=== PATIENT | female | born 1975 | race Two or more races ===

== ENCOUNTER 2018-01-18 07:57 | Day surgery (SDC) | payer OTHER ==
[~2018-01-18] VITALS: Ht 165.1 cm; Wt 117.9 kg
[2018-01-18] VITALS (8 sets, daily range): BP systolic 134–159; BP diastolic 78–94
[~2018-01-18 07:57] MED LIST: BENAZEPRIL HCL10 MG ORAL; METFORMIN HCL500 M1 ORAL
[2018-01-18] MEDS ORDERED: Lidocaine 1% MPF 10mg/ml 5ml ONE (09:00)
[2018-01-18] MEDS ORDERED: Propofol 200mg/20ml IV ONE (09:00)
[2018-01-18] MEDS ORDERED: LR 1000ml ONE (09:00)
[2018-01-18] MEDS ORDERED: LR 1000ml 1,000 ML IVLG SCH (09:19)
--- NOTE | 2018-01-18 09:20 | Short Stay Surgery H&P ---
History of Present Illness History of Present Illness Chief Complaint Dysphagia/abdominal pains/GERDs HPI Delbert Hernandez is a 42 year old female who was admitted on for GERD Patient History Allergies: Coded Allergies: No Known Allergies (Unverified , 01/17/18) PAST MEDICAL HISTORY: (1) Hypertension (2) Hyperlipidemia (3) Diabetes (4) H/O elbow surgery Medication History Scheduled Benazepril Hcl* (Benazepril Hcl*), 10 MG ORAL DAILY, (Reported) Metformin Hcl* (Metformin Hcl*), 500 MG ORAL TWICE A DAY, (Reported) Review of Systems Cardiovascular: Reports: no symptoms Respiratory: Reports: no symptoms Skeletal: Reports: trauma Gastrointestinal: Reports: gastro esophageal reflux disease Genitourinary: Reports: no symptoms Neurologic: Reports: no symptoms Endocrine: Reports: diabetes - type 2 Hematologic: Reports: no symptoms Physical Exam Vital Signs Last Vital Signs Date Time Temp Pulse Resp B/P (MAP) Pulse Ox O2 Delivery O2 Flow Rate FiO2 01/18/18 08:43 Room Air 01/18/18 08:37 97.7 106 18 134/94 (107) 95 97.7 Labs Laboratory Tests Test 01/18/18 08:50 Human Chorionic Gonadotropin, Qual Pending Skin: normal HENT: normal Heart: normal Lungs: normal Abdomen: abnormal Extremities: normal Genitourinary: normal Plan Plan of Care Upper GI endoscopy and biopsy Preop Interventions None. Summary of Findings See the report Attestation Are the patient's medical conditions optimized for surgery? Attestation Response: yes Chante Lin MD Jan 18, 2018 09:20
--- NOTE | 2018-01-18 09:21 | Pre-Procedure Note/Attestation ---
Pre-Procedure Note/Attestation Complete Prior to Procedure Planned Procedure: left Procedure Narrative: Examination of the upper GI tract via endoscopy and biopsy Indications for Procedure Pre-Operative Diagnosis: R/O Peptic Ulcer/gastritis and esophagitis Attestation I attest that I discussed the nature of the procedure; its benefits; risks and complications; and alternatives (and the risks and benefits of such alternatives ), prior to the procedure, with the patient (or the patient's legal motor vehicle field representative). I attest that, if there was a reasonable possibility of needing a blood transfusion, the patient (or the patient's legal motor vehicle field representative) was given the [facility] standardized written summary, pursuant to the Sukh Disney Blood Safety Act ([place] Health and Safety Code # 1645, as amended). I attest that I re-evaluated the patient just prior to the surgery and that there has been no change in the patient's H&P, except as documented below: Chante Lin MD Jan 18, 2018 09:21
--- NOTE | 2018-01-18 09:23 | Anethesia Preoperative Eval ---
Anesthesia Pre-op PMH/ROS General Date of Evaluation: Jan 18, 2018 Time of Evaluation: 09:11 Anesthesiologist: adebayo ASA Score: ASA 3 Mallampati Score Class I : Soft palate, uvula, fauces, pillars visible Class II: Soft palate, uvula, fauces visible Class III: Soft palate, base of uvula visible Class IV: Only hard plate visible Mallampati Classification: Class II Surgeon: ama Diagnosis: gerd Surgical Procedure: egd Anesthesia History: none Social History: smoking - nonsmoker Family History: no anesthesia problems Allergies: Coded Allergies: No Known Allergies (Unverified , 01/17/18) Medications: see eMAR Past Medical History Cardiovascular: Reports: HTN Pulmonary: Reports: asthma Gastrointestinal/Genitourinary: Reports: GERD, other - kidney infection Endocrine: Reports: DM Musculoskeletal/Integumentary: Reports: OA Other: obesity Anesthesia Pre-op Phys. Exam Physician Exam Last Vital Signs Date Time Temp Pulse Resp B/P (MAP) Pulse Ox O2 Delivery O2 Flow Rate FiO2 01/18/18 08:43 Room Air 01/18/18 08:37 97.7 106 18 134/94 (107) 95 97.7 Constitutional: NAD Neurologic: CN 2-12 intact Cardiovascular: RRR Respiratory: CTA Gastrointestinal: S/NT/ND Airway Exam Mallampati Score: Class II MO: full Neck: short TMD: 2fb ROM: limited Anesthesia Pre-op A/P Labs Chemistry Test 01/18/18 08:50 Human Chorionic Gonadotropin, Qual Pending Serum Test Test 01/18/18 08:50 Human Chorionic Gonadotropin, Qual Pending Risk Assessment & Plan Assessment: asa3 Plan: mac Status Change Before Surgery: No Pre-Antibiotics Drug: Mei Knott MD Jan 18, 2018 09:23
[2018-01-18] MEDS ORDERED: DiphenhydrAMINE 50mg/ml Inj IVP PRN (09:30)
[2018-01-18] MEDS ORDERED: fentaNYL 100 mcg/2 mL IV PRN (09:30)
[2018-01-18] MEDS ORDERED: Midazolam 2mg/2ml Inj IVP PRN (09:30)
[2018-01-18] MEDS ORDERED: Labetalol 5mg/ml 20ml vial IV PRN (09:30)
[2018-01-18] MEDS ORDERED: Atropine Inj 1mg/10ml Syr IV PRN (09:30)
--- NOTE | 2018-01-18 09:40 | Endoscopy Procedure Note ---
Endoscopy Procedure Note General Indication for Procedure: Dysphagia/GERDs/abdominal pains Procedures Performed: EGD - Completely normal Upper GI endoscopy , biopsy was done randomly from gastric body. Specimen: yes Pt Tolerated Procedure Well: Yes Estimated Blood Loss: none Anesthesia Anesthesiologist: Dr. Camara Anesthesia: moderate sedation Medications Medication Given: see anesthesia record Inserted Devices Implant(s) used?: No Quality Quality of Bowel Preparation: Excellent Was there any complications?: No GI Core Measures 50 yrs or older w/o bx or poly: Not Applicable 10yrs. F/U not recommended: Not Applicable If not recommended, why?: Med reason:<3 yrs.: System Reason:<3 yrs.: Chante Lin MD Jan 18, 2018 09:40
--- NOTE | 2018-01-18 09:41 | Discharge Instructions ---
Discharge Instructions Discharge Instructions Follow up with: Visit the doctor after two weeks in the office For Congestive Heart Failure Reminder Report to your physician any weight gain of 5 pounds or more in one week. Chante Lin MD Jan 18, 2018 09:41
--- NOTE | 2018-01-18 10:02 | Immediate Post-Op Evaluation ---
Immediate Post-Op Evalulation Immediate Post-Op Evalulation Procedure: egd Date of Evaluation: Jan 18, 2018 Time of Evaluation: 09:57 IV Fluids: 650ml lr Blood Products: none Estimated Blood Loss: neglgible Blood Pressure Systolic: 152 Blood Pressure Diastolic: 78 Pulse Rate: 92 Respiratory Rate: 18 O2 Sat by Pulse Oximetry: 99 Temperature (Fahrenheit): 98.3 Pain Score (1-10): 0 Nausea: No Vomiting: No Complications none Patient Status: awake, reacts, patent Hydration Status: adequate Drug: Mei Knott MD Jan 18, 2018 10:02
--- NOTE | 2018-01-18 10:03 | 48 Hour Post Anesthesia Eval ---
Post Anesthesia Evaluation Procedure: egd Date of Evaluation: Jan 18, 2018 Time of Evaluation: 10:02 Blood Pressure Systolic: 155 0: 82 Pulse Rate: 99 Respiratory Rate: 18 Temperature (Fahrenheit): 98.3 O2 Sat by Pulse Oximetry: 99 Airway: patent Nausea: No Vomiting: No Pain Intensity: 0 Hydration Status: adequate Cardiopulmonary Status: stable Mental Status/LOC: patient returned to baseline Post-Anesthesia Complications: none Follow-up care needed: N/A Mei Montanez MD Jan 18, 2018 10:03
--- NOTE | 2018-01-18 13:30 | Pre-op HX & Phy Repo 2 SIG ---
DATE OF ADMISSION: 01/18/2018 HISTORY OF PRESENT ILLNESS: The applicant is a 42-year-old [id number] female, who is being seen prior to undergoing the procedure of upper GI endoscopy for which she has been scheduled to receive evaluation of gastrointestinal symptoms that she has suffered subsequent to her work injury has claimed. The applicant reports that she experiences pain over the upper part of the abdomen associated with significant heartburn. These pains are also radiating towards her chest area. She has been receiving medications such as Mylanta and antacids. She also complains of difficulty swallowing periodically with nausea and vomiting episodes. The applicant does have history of obesity, but she reports that subsequent to her injury she has gained approximately 100 pounds more. The applicant do es have symptoms of gastroesophageal reflux as mentioned and as I reported there was also having difficulty swallowing. Subsequently, taking multiple medications including strong analgesics and nonsteroidal anti-inflammatory agents that she was prescribed subsequent to her work injury. She reports that she has been taking these medications at least three to four years particularly the nonsteroidal anti-inflammatory agents, NSAIDs. She also reports that she has had intermittent diarrhea and constipation with abdominal cramps as well. The applicant denies having hematemesis, melena, hematochezia, GI bleeding frankly etc. As I mentioned, the applicant does have a history of injury at work after, which time she had pains over her spine particularly dorsal lumbar area consistent with disc disease and she received multiple physical therapy and treatment in that regard. She also developed psychological problems including anxiety and stress and change in the stomach area as I mentioned earlier. There was also exposure to HIV patient that was subsequently finalized that she did not have any transverse infection per body. PAST MEDICAL HISTORY: Hypertension, hyperlipidemia, also diabetes mellitus, carpal tunnel syndrome, and obesity. PAST SURGICAL HISTORY: Elbow surgery and two C-sections. ALLERGIES: None significant. HABITS: The applicant denies drinking alcohol or smoking cigarettes. REVIEW OF SYSTEMS: Basically history of present illness. The applicant currently complains of GI symptoms mostly and abdominal pains. She denies chest pain, shortness of breath, cough, hemoptysis, etc. PHYSICAL EXAMINATION: GENERAL: At this time, reveals alert and oriented female, who does not seem to be in any acute distress. She looks significantly obese consistent with morbid obesity. VITAL SIGNS: All stable. HEENT: Normocephalic. Pupils equal in size and reactive to light and accommodation. No visible jaundice. Buccal cavity, tongue midline, well hydrated. No ulcers. NECK: Supple. No JVD, thyromegaly, or adenopathy. CHEST: Clear to auscultation and percussion. No rales or rhonchi heard. HEART: S1, S2 normal. Regular rhythm. No gallops or murmur. ABDOMEN: Quite obese and soft, but there are areas of tenderness over the upper part of the abdomen. there is an ulcer in the epigastric area. No palpable mass. No hepatosplenomegaly. EXTREMITIES: No pretibial edema, cyanosis, or clubbing. NEUROLOGIC: None significant. PRELIMINARY PREOPERATIVE IMPRESSION: 1. Epigastric pain, history of gastroesophageal reflux aggravated by usage of NSAID medications, rule out NSAID-induced gastropathy, peptic ulcer disease, duodenal ulcer. 2. History of dysphagia possibly secondary to gastroesophageal reflux, esophageal spasm, rule out NSAID-induced esophagitis. 3. Intermittent diarrhea and constipation with abdominal pain rule out underlying irritable bowel syndrome, aggravated by anxiety and stress and side effects of medication used for the treatment of bodily injury. 4. Morbid obesity. 5. Diabetes mellitus and hypertension. 6. Anxiety and depression. RECOMMENDATIONS: The applicant seems to be stable at this time to undergo the procedure of upper GI endoscopy. She understand the risks and benefits and will sign the consent. Said Monica Lin DR: RAHEEM JOB#: [id number] CC:
--- NOTE | 2018-01-18 19:15 | Procedure Note ---
DATE OF PROCEDURE: 01/18/2018 SURGEON: Chante Lin M.D. PROCEDURE: Esophagogastroduodenoscopy with biopsy. PREOPERATIVE DIAGNOSES: 1. Abdominal pain, gastroesophageal reflux, rule out peptic ulcer disease, esophagitis. 2. Dysphagia of uncertain etiology, rule out esophagitis caused by NSAID medication. POSTOPERATIVE DIAGNOSIS: Completely normal upper gastrointestinal endoscopy. Biopsy was taken per random from gastric body. MEDICATION USED: Per Dr. Camara, anesthesiologist. INSTRUMENT: GIF Olympus upper GI video endoscope. DESCRIPTION OF PROCEDURE: The patient, after arriving in endoscopy unit, was told about risks and benefits of the procedure, which she accepted and signed informed consent. She was then put on the left lateral decubitus position. After adequate IV sedation, the scope was gently passed through the cricopharyngeal area, was lodged into the upper esophagus, and gradually advanced towards gastroesophageal junction. The entire length of the esophagus looked normal and there was no any evidence of abnormality. No stricture, ulcers, etc. GE junction also looked normal. At this time, the scope was advanced into the stomach. Gastric cavity was distended. Gastric folds came into view and gradually the areas of the fundus and the body and the antrum were examined, which looked completely normal with normal gastric mucosa. No ulcers or tumors or polyps or bleeding sites noted. At this time, one random biopsy from gastric body obtained and subsequently, the scope was passed through the pylorus. First and second portions of duodenum were also found to be completely normal. At this time, the scope was pulled out and the procedure was terminated. The patient tolerated the procedure well and left the endoscopy room in a good condition. Chante Lin M.D. DR: RAHEEM JOB#: [id number] CC:
== END 2018-01-18 10:50 | disposition home or self-care (01) ==
LOC: GAS 07:57
DX: K29.70 Gastritis, unspecified, without bleeding (principal); B96.81 Helicobacter pylori [H. pylori] as the cause of diseases classified elsewhere; K21.9 Gastro-esophageal reflux disease without esophagitis; R13.10 Dysphagia, unspecified; I10 Essential (primary) hypertension; E78.5 Hyperlipidemia, unspecified; E11.9 Type 2 diabetes mellitus without complications; E66.01 Morbid (severe) obesity due to excess calories; J45.909 Unspecified asthma, uncomplicated; M19.90 Unspecified osteoarthritis, unspecified site; F41.9 Anxiety disorder, unspecified; F32.9 Major depressive disorder, single episode, unspecified
CPT/HCPCS: 36415; 43239; 82962; 84703; J2704; J7120; 94003; 94150